=== PATIENT | female | born 1990 | race Caucasian/White ===

== ENCOUNTER → 2016-09-28 | Outpatient (CLI) | payer OTHER ==
--- NOTE | 2016-09-28 20:24 | XR ---
EXAMINATION TYPE: XR shoulder complete BILAT DATE OF EXAM: 09/28/2016 7:46 PM COMPARISON: NONE HISTORY: Neck and arm pain TECHNIQUE: 6 views FINDINGS: I see no fracture nor dislocation. Joint spaces are normal. There are no pathologic calcifi cations. IMPRESSION: Normal bilateral shoulder exam.
--- NOTE | 2016-09-28 20:25 | XR ---
EXAMINATION TYPE: XR cervical spine comp DATE OF EXAM: 09/28/2016 7:46 PM COMPARISON: NONE HISTORY: Neck pain TECHNIQUE: 5 views FINDINGS: The cervical vertebra have normal spacing and alignment. Posterior elements are intact. Odin antoaxial facet joint is normal. There are no cervical ribs. IMPRESSION: Normal cervical spine
== END | disposition home or self-care (01) ==
LOC: RADXRMAIN 19:21
PROVIDERS: ATTEND Nurse Practitioner Family
DX: M79.602 Pain in left arm (principal); M79.601 Pain in right arm; R20.2 Paresthesia of skin
CPT/HCPCS: 72050

== ENCOUNTER → 2017-06-05 | Outpatient (CLI) | payer OTHER ==
[2017-06-05 16:13] LABS: CH 31.8; CHCM 33.7; HCT 36.4 % (34.0-46.0); HDW 2.21; HGB 12.2 gm/dL (11.4-16.0); MCH 31.6 pg (25.0-35.0); MCHC 33.4 g/dL (31.0-37.0); MCV 94.7 fL (80.0-100.0); Mean Platelet Volume 7.7; RBC 3.84 m/uL (3.80-5.40); WBC 9.3 k/uL (3.8-10.6)
[2017-06-05 16:31] LABS: Glucose 74 mg/dL (74-99); Non-African American GFR(MDRD) >60 (>60 ml/min/1.73 sqM)
[2017-06-05 17:00] LABS: Hepatitis B Surface Ag Index 0.05
[2017-06-06 02:11] LABS: Treponemal Ab Non-Reactive (Non-Reactive)
== END | disposition home or self-care (01) ==
LOC: LABWHC1 15:53
PROVIDERS: ATTEND Obstetrics & Gynecology
DX: O26.811 Pregnancy related exhaustion and fatigue, first trimester (principal); Z3A.00 Weeks of gestation of pregnancy not specified
CPT/HCPCS: 36415; 82565; 82947; 85027; 86762; 86780; 86850; 86900; 86901; 87340; 87390

== ENCOUNTER → 2017-06-05 | Outpatient (CLI) | payer OTHER ==
--- NOTE | 2017-06-05 22:10 | US ---
EXAMINATION TYPE: US OB <= 14 wk fetus DATE OF EXAM: 06/05/2017 COMPARISON: NONE CLINICAL HISTORY: 26-year-old female [id number] CONFIRM DATES. Confirm dates EXAM PERFORMED: Transabdominal (TA) FINDINGS: EXAM MEASUREMENTS: GESTATIONAL AGE / DATING Physician Established: not established Dates by LMP: (12 weeks/0 days) EDC: 12/18/17 Dates by First Scan: no prior Dates by Current Scan for: (11 weeks/5 days) EDC: 12/20/17 MATERNAL ANATOMY Uterus: 16.4 x 5.9 x 9.5cm Right Ovary: 3.1 x 1.7 x 1.7cm Left Ovary: 3.6 x 1.5 x 2.3cm Post CDS / Adnexa: wnl Presence of free fluid: no Presence of corpus luteal cyst: yes, right ovary = 1.6 x 1.3 x 1.3cm GESTATION / SURVEY CRL: 5.1cm (11 weeks/5 days) Yolk Sac (normal less than 6mm): 0.3cm Heart Rate: 163 bpm Rhythm: Normal IUP: Viable IUP Nuchal Translucency 10-14wks (normal less than 3mm): 0.2cm Date of LMP: 03/13/17 Beta HcG (if available): unavailable RELAY TELEGRAPHER NOTES: Single viable IUP 11wks/5days with GIN of 12/20/17 IMPRESSION: 1. Single live intrauterine with estimated gestational age of 12 weeks 0 days by LMP. Curre nt ultrasound biometry is concordant (11 weeks 5 days). 2. Complete survey recommended at 18-20 weeks.
== END | disposition home or self-care (01) ==
LOC: RADUSWWP 15:19
PROVIDERS: ATTEND Obstetrics & Gynecology
DX: Z36 Encounter for antenatal screening of mother (principal); Z3A.11 11 weeks gestation of pregnancy
CPT/HCPCS: 76801; 76813

== ENCOUNTER 2024-05-24 02:11 | Emergency (ER) | payer OTHER ==
[2024-05-24 02:24] VITALS: TEMP 98.2
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
[2024-05-24 03:33] LABS: Amphetamine Screen,Urine Detected (NotDetected); Barbiturate Screen,Urine Not Detected (NotDetected); Benzodiazepines Screen,Urine Not Detected (NotDetected); Cocaine Screen,Urine Detected (NotDetected); Methadone Screen, Urine Not Detected (NotDetected); Opiate Screen,Urine Not Detected (NotDetected); Oxycodone Screen, Urine Not Detected (NotDetected); Phencyclidine Screen,Urine Not Detected (NotDetected); Tricyclic Antidepressant,Urine Not Detected (NotDetected); Urn Cannabinoid Scrn Detected (NotDetected)
[2024-05-24 05:16] VITALS: BP 120/77; PULSE 94; RESP 19
== END 2024-05-24 05:16 | disposition home or self-care (01) ==
LOC: EC 02:11
CPT/HCPCS: 80306; 81025; 99283